=== PATIENT | female | born 1995 | race Two or more races ===

== ENCOUNTER 2022-06-24 22:23 | Emergency (ER) | payer SELFPAY ==
[~2022-06-24] VITALS: Ht 165.1 cm; Wt 75.0 kg
[2022-06-24 22:24] VITALS: BP 127/71
[2022-06-24 23:48] LABS: SQUAMOUS EPITHELIAL CELL URINE MOD AMOUNT /hpf (SMALL AMT)
[2022-06-24 23:49] LABS: AMORPHOUS SEDIMENT, URINE SMALL AMOUNT (NEGATIVE); BACTERIA, URINE SMALL AMOUNT; HYALINE CAST, URINE NONE SEEN /lpf (0-1); MUCUS, URINE MOD AMOUNT (NEGATIVE)
== END 2022-06-25 02:00 | disposition left against medical advice (07) ==
LOC: M ED 22:23
DX: Z53.21 Procedure and treatment not carried out due to patient leaving prior to being seen by health care provider (principal)